=== PATIENT | female | born 2005 | race Caucasian/White ===

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

== ENCOUNTER 2023-08-22 22:06 | Emergency (ER) | payer OTHER ==
[2023-08-22] MEDS ORDERED: Sodium Chloride 0.9% 10 ML Syringe FLUSH PRN (22:43)
[2023-08-22] MEDS ORDERED: Ketorolac 30 MG/ML SDV IVPUSH ONE (22:44)
[2023-08-22] MEDS ORDERED: Metoclopramide 10 MG/2 ML SDV IVPUSH ONE (22:44)
[2023-08-22] MEDS ORDERED: diphenhydrAMINE 50 MG/ML SDV IVPUSH ONE (22:44)
[2023-08-22] MEDS ORDERED: Sodium Chloride 0.9% 1,000 ML IV ONE (22:44)
[2023-08-22 23:57] VITALS: BP 111/69; PULSE 86
== END 2023-08-22 23:48 | disposition home or self-care (01) ==
LOC: JD.ED 22:06
DX: G43.909 Migraine, unspecified, not intractable, without status migrainosus (principal)
CPT/HCPCS: 96361; 96374; 96375; 99283; J1200; J1885; J2765; J7030; 99284

== ENCOUNTER 2023-09-22 21:18 | Emergency (ER) | payer OTHER ==
[2023-09-22 22:06] LABS: BASOPHILS ABSOLUTE AUTO 0.1 K/mm3 (0.0-0.2); BASOPHILS PERCENT AUTO 0.4 % (0.0-1.0); EOSINOPHILS ABSOLUTE AUTO 0.2 K/mm3 (0.0-0.4); EOSINOPHILS PERCENT AUTO 1.3 % (0.0-6.0); HEMATOCRIT 37.3 % (37.0-47.0); HEMOGLOBIN 12.5 gm/dl (12.0-16.0); IMMATURE GRAN ABSOLUTE AUTO 0.04 K/mm3 (0.00-0.05); IMMATURE GRAN PERCENT AUTO 0.3 % (0.0-0.4); LYMPHOCYTES ABSOLUTE AUTO 3.7 K/mm3 (1.0-4.8); LYMPHOCYTES PERCENT AUTO 25.4 % (24.0-44.0); MEAN CORPUSCULAR HEMOGLOBIN 27.2 pg (28.0-32.0); MEAN CORPUSCULAR HGB CONC 33.5 g/dl (32.0-36.0); MEAN CORPUSCULAR VOLUME 81.1 fl (83.0-99.0); MONOCYTES PERCENT AUTO 6.7 % (0.0-8.0); NEUTROPHILS ABSOLUTE AUTO 9.5 K/mm3 (1.8-7.7); NEUTROPHILS PERCENT AUTO 65.9 % (41.0-71.0); PLATELET COUNT,PLT 257 K/mm3 (150-400); WHITE BLOOD CELL COUNT,WBC 14.41 K/mm3 (3.9-11.3)
[2023-09-22 22:30] LABS: A/G RATIO 1.2 (1-2); ALBUMIN 3.8 g/dl (3.4-5.0); ANION GAP 14.2 (5-15); BILIRUBIN TOTAL 0.2 mg/dL (0.2-1.0); CALCIUM 9.3 mg/dL (8.5-10.1); EST CRCL DRUG DOSING (CG) 77.49 mL/min; POTASSIUM,K 3.2 mEq/L (3.5-5.1)
[2023-09-22] MEDS ORDERED: Potassium Chloride 20 MEQ Tab.ER PO ONE (22:34)
[2023-09-22 23:40] VITALS: BP 115/75; PULSE 98
== END 2023-09-22 23:40 | disposition home or self-care (01) ==
LOC: JD.ED 21:18
DX: R07.89 Other chest pain (principal); R00.0 Tachycardia, unspecified; E87.6 Hypokalemia; Z86.16 Personal history of COVID-19
CPT/HCPCS: 36415; 71046; 80053; 84484; 85025; 93005; 93246; 99285; A9270; 93010; 99282

== ENCOUNTER 2024-04-02 15:51 | Emergency (ER) | payer OTHER ==
[2024-04-02] MEDS: Sodium Chloride 0.9% 1,000 ML IV ONE (18:55)
[2024-04-02] MEDS: Metoclopramide 10 MG/2 ML SDV IVPUSH ONE (18:55)
[2024-04-02] MEDS: Ketorolac 30 MG/ML SDV IVPUSH ONE (18:58)
[2024-04-02 19:42] VITALS: BP 132/78; PULSE 78
== END 2024-04-02 20:14 | disposition home or self-care (01) ==
LOC: JD.ED 15:51
DX: G43.909 Migraine, unspecified, not intractable, without status migrainosus (principal); Z79.899 Other long term (current) drug therapy; Z86.16 Personal history of COVID-19
CPT/HCPCS: 96374; 96375; 99283; J1885; J2765; J7030

== ENCOUNTER 2024-10-29 16:35 | Emergency (ER) | payer OTHER ==
[2024-10-29] MEDS: HYDROmorphone 0.5 MG/0.5 ML Syringe IVPUSH ONE (17:46)
[2024-10-29] MEDS: diphenhydrAMINE 50 MG/ML SDV IVPUSH ONE (17:46)
[2024-10-29] MEDS: Metoclopramide 10 MG/2 ML SDV IVPUSH ONE (17:46)
[2024-10-29] MEDS: Dextrose 5%-0.9% NaCl 1,000 ML IV SCH (17:47)
[2024-10-29 17:54] LABS: BASOPHILS ABSOLUTE AUTO 0.1 K/mm3 (0.0-0.2); BASOPHILS PERCENT AUTO 0.2 % (0.0-1.0); HEMATOCRIT 42.8 % (37.0-47.0); HEMOGLOBIN 14.5 gm/dl (12.0-16.0); IMMATURE GRAN ABSOLUTE AUTO 0.18 K/mm3 (0.00-0.05); IMMATURE GRAN PERCENT AUTO 0.7 % (0.0-0.4); LYMPHOCYTES ABSOLUTE AUTO 1.7 K/mm3 (1.0-4.8); LYMPHOCYTES PERCENT AUTO 6.8 % (24.0-44.0); MEAN CORPUSCULAR HEMOGLOBIN 29.7 pg (28.0-32.0); MEAN CORPUSCULAR HGB CONC 33.9 g/dl (32.0-36.0); MEAN CORPUSCULAR VOLUME 87.5 fl (83.0-99.0); MEAN PLATELET VOLUME 10.5 fl (9.4-12.3); MONOCYTES ABSOLUTE AUTO 0.5 K/mm3 (0.0-0.8); MONOCYTES PERCENT AUTO 2.2 % (0.0-8.0); NEUTROPHILS ABSOLUTE AUTO 22.5 K/mm3 (1.8-7.7); NEUTROPHILS PERCENT AUTO 90.1 % (41.0-71.0); PLATELET COUNT,PLT 286 K/mm3 (150-400); RED BLOOD CELL COUNT 4.89 M/mm3 (4.10-5.30); WHITE BLOOD CELL COUNT,WBC 24.96 K/mm3 (3.9-11.3)
[2024-10-29 18:11] LABS: SLIDE REVIEW ABNORMAL SMEAR
[2024-10-29 18:17] LABS: A/G RATIO 0.9 (1-2); ALBUMIN 3.6 g/dl (3.4-5.0); ANION GAP 18.6 (5-15); BILIRUBIN TOTAL 0.6 mg/dL (0.2-1.0); BUN/CREATININE RATIO 11.3 (14-18); CALCIUM 9.6 mg/dL (8.5-10.1); CREATININE 0.8 mg/dL (0.55-1.02); EST CRCL DRUG DOSING (CG) 96.06 mL/min; POTASSIUM,K 3.6 mEq/L (3.5-5.1); PROTEIN TOTAL,TP 7.8 g/dl (6.4-8.2)
[2024-10-29] MEDS: Acetaminophen 325 MG Tab PO ONE (18:20)
[2024-10-29] MEDS: Dexamethasone 4 MG/ML SDV IVPUSH ONE (18:21)
[2024-10-29] MEDS: Lactated Ringers 1,000 ML IV SCH (19:09)
[2024-10-29 19:15] LABS: APPEARANCE,URINE CLEAR (Clear); BILIRUBIN,URINE NEGATIVE (Negative); COLOR,URINE YELLOW (Yellow); GLUCOSE,URINE 2+ (Negative); KETONES,URINE 3+ (Negative); LEUKOCYTE ESTERASE,URINE NEGATIVE (Negative); NITRITE,URINE NEGATIVE (Negative); OCCULT BLOOD,URINE NEGATIVE (Negative); PROTEIN,URINE TRACE (Negative)
[2024-10-29 19:31] LABS: RBC,URINE 0-5 /hpf (0-5); WBC,URINE 0-5 /hpf (0-5)
[2024-10-29 19:32] LABS: BACTERIA,URINE FEW /hpf (FEW); MUCUS,URINE MODERATE /hpf (FEW)
[2024-10-29 19:47] VITALS: BP 122/85; PULSE 85
== END 2024-10-29 19:49 | disposition home or self-care (01) ==
LOC: JD.ED 16:35
DX: O99.352 Diseases of the nervous system complicating pregnancy, second trimester (principal); G43.919 Migraine, unspecified, intractable, without status migrainosus; Z86.16 Personal history of COVID-19; Z79.899 Other long term (current) drug therapy; Z3A.19 19 weeks gestation of pregnancy
CPT/HCPCS: 36415; 80053; 81001; 85025; 86140; 96361; 96374; 96375; 99283; A9270; J1100; J1171; J1200; J2765; J7042; J7120

== ENCOUNTER 2024-11-18 01:46 | Emergency (ER) | payer OTHER ==
[2024-11-18 02:02] VITALS: BP 118/68; PULSE 94
[2024-11-18] MEDS: Sodium Chloride 0.9% 10 ML Syringe FLUSH PRN (02:46)
[2024-11-18 02:47] LABS: APPEARANCE,URINE CLEAR (Clear); BILIRUBIN,URINE NEGATIVE (Negative); COLOR,URINE YELLOW (Yellow); GLUCOSE,URINE NEGATIVE (Negative); KETONES,URINE 4+ (Negative); LEUKOCYTE ESTERASE,URINE NEGATIVE (Negative); NITRITE,URINE NEGATIVE (Negative); OCCULT BLOOD,URINE NEGATIVE (Negative); PH,URINE 8.5 (5.0-8.0); PROTEIN,URINE 1+ (Negative)
[2024-11-18 02:50] LABS: BASOPHILS ABSOLUTE AUTO 0.1 K/mm3 (0.0-0.2); BASOPHILS PERCENT AUTO 0.2 % (0.0-1.0); HEMOGLOBIN 13.1 gm/dl (12.0-16.0); IMMATURE GRAN ABSOLUTE AUTO 0.19 K/mm3 (0.00-0.05); IMMATURE GRAN PERCENT AUTO 0.8 % (0.0-0.4); LYMPHOCYTES ABSOLUTE AUTO 1.7 K/mm3 (1.0-4.8); LYMPHOCYTES PERCENT AUTO 6.8 % (24.0-44.0); MEAN CORPUSCULAR HEMOGLOBIN 29.6 pg (28.0-32.0); MEAN CORPUSCULAR HGB CONC 35.4 g/dl (32.0-36.0); MEAN CORPUSCULAR VOLUME 83.7 fl (83.0-99.0); MEAN PLATELET VOLUME 10.2 fl (9.4-12.3); MONOCYTES ABSOLUTE AUTO 0.5 K/mm3 (0.0-0.8); NEUTROPHILS ABSOLUTE AUTO 22.5 K/mm3 (1.8-7.7); NEUTROPHILS PERCENT AUTO 90.2 % (41.0-71.0); PLATELET COUNT,PLT 267 K/mm3 (150-400); RED BLOOD CELL COUNT 4.42 M/mm3 (4.10-5.30); WHITE BLOOD CELL COUNT,WBC 24.95 K/mm3 (3.9-11.3)
[2024-11-18] MEDS: Sodium Chloride 0.9% 1,000 ML IV ONE (02:51)
[2024-11-18] MEDS: Acetaminophen 325 MG Tab PO ONE (02:52)
[2024-11-18] MEDS: diphenhydrAMINE 50 MG/ML SDV IVPUSH ONE (02:52)
[2024-11-18 03:12] LABS: A/G RATIO 0.8 (1-2); ALANINE AMINOTRANSFERASE,ALT 63 U/L (14-59); ALKALINE PHOSPHATASE 67 U/L (46-116); ANION GAP 18.5 (5-15); ASPARTATE AMNIOTRANSFERASE,AST 56 U/L (15-37); BILIRUBIN TOTAL 0.5 mg/dL (0.2-1.0); BLOOD UREA NITROGEN,BUN 8 mg/dL (7-18); BUN/CREATININE RATIO 11.4 (14-18); CALCIUM 9.1 mg/dL (8.5-10.1); CARBON DIOXIDE,CO2 20 mEq/L (21-32); CHLORIDE,CL 105 mEq/L (98-107); CREATININE 0.7 mg/dL (0.55-1.02); EST CRCL DRUG DOSING (CG) 109.78 mL/min; ESTIMATED GFR 126 mL/min (>60); GLUCOSE RANDOM 92 mg/dL (70-99); LIPASE 30 U/L (16-77); MAGNESIUM 1.4 mg/dL (1.8-2.4); POTASSIUM,K 3.5 mEq/L (3.5-5.1); PROTEIN TOTAL,TP 6.7 g/dl (6.4-8.2); SODIUM,NA 140 mEq/L (136-145)
[2024-11-18 03:14] LABS: TROPONIN I HIGH SENSITIVITY < 4 pg/mL (<=51)
[2024-11-18 03:27] LABS: BACTERIA,URINE FEW /hpf (FEW); MUCUS,URINE NOT SEEN /hpf (FEW); RBC,URINE 0-5 /hpf (0-5); SQUAMOUS EPITHELIAL CELLS,UR 0-5 /hpf (0-5); WBC,URINE 0-5 /hpf (0-5)
[2024-11-18] MEDS: Magnesium Oxide 400 MG Tab PO ONE (04:58)
== END 2024-11-18 04:48 | disposition home or self-care (01) ==
LOC: JD.ED 01:46
DX: O20.9 Hemorrhage in early pregnancy, unspecified (principal); O26.892 Other specified pregnancy related conditions, second trimester; R10.9 Unspecified abdominal pain; R51.9 Headache, unspecified; R07.9 Chest pain, unspecified; D72.829 Elevated white blood cell count, unspecified; E83.42 Hypomagnesemia; Z86.16 Personal history of COVID-19; Z87.891 Personal history of nicotine dependence; Z79.899 Other long term (current) drug therapy; Z3A.22 22 weeks gestation of pregnancy
CPT/HCPCS: 36415; 76817; 80053; 81001; 83690; 83735; 84484; 84702; 85025; 86900; 86901; 93005; 96361; 96374; 99285; A9270; J1200; J7030

== ENCOUNTER 2025-03-21 06:46 | Inpatient (IN) | payer OTHER ==
[~2025-03-21 06:46] MED LIST: Bupivacaine 0.25% 10 ML SDV ONE; Lidocaine 2% with EPINEPHrine 1:200,000 20 ML SDV ONE; Phenylephrine 1% 10 MG/ML SDV ONE
[2025-03-21] MEDS ORDERED: Sodium Chloride 0.9% 10 ML Syringe FLUSH PRN (06:48)
[2025-03-21] MEDS ORDERED: Nalbuphine 10 MG/1 ML Vial IVPUSH PRN (06:48)
[2025-03-21] MEDS ORDERED: Lidocaine 1% 50 ML MDV INJECT PRN (06:48)
[2025-03-21] MEDS ORDERED: Oxytocin/0.9 % Sodium Chloride 30 UNIT/500 ML BAG IV SCH (07:00)
[2025-03-21 07:08] LABS: BASOPHILS ABSOLUTE AUTO 0.1 K/mm3 (0.0-0.2); BASOPHILS PERCENT AUTO 0.3 % (0.0-1.0); EOSINOPHILS ABSOLUTE AUTO 0.1 K/mm3 (0.0-0.4); EOSINOPHILS PERCENT AUTO 0.6 % (0.0-6.0); HEMATOCRIT 37.5 % (37.0-47.0); HEMOGLOBIN 12.4 gm/dl (12.0-16.0); IMMATURE GRAN ABSOLUTE AUTO 0.11 K/mm3 (0.00-0.05); IMMATURE GRAN PERCENT AUTO 0.6 % (0.0-0.4); LYMPHOCYTES ABSOLUTE AUTO 2.7 K/mm3 (1.0-4.8); LYMPHOCYTES PERCENT AUTO 15.7 % (24.0-44.0); MEAN CORPUSCULAR HEMOGLOBIN 28.3 pg (28.0-32.0); MEAN CORPUSCULAR HGB CONC 33.1 g/dl (32.0-36.0); MEAN CORPUSCULAR VOLUME 85.6 fl (83.0-99.0); MEAN PLATELET VOLUME 11.7 fl (9.4-12.3); MONOCYTES ABSOLUTE AUTO 0.6 K/mm3 (0.0-0.8); MONOCYTES PERCENT AUTO 3.7 % (0.0-8.0); NEUTROPHILS ABSOLUTE AUTO 13.5 K/mm3 (1.8-7.7); NEUTROPHILS PERCENT AUTO 79.1 % (41.0-71.0); PLATELET COUNT,PLT 233 K/mm3 (150-400); RED BLOOD CELL COUNT 4.38 M/mm3 (4.10-5.30); WHITE BLOOD CELL COUNT,WBC 17.04 K/mm3 (3.9-11.3)
[2025-03-21] MEDS: Lactated Ringers 1,000 ML IV SCH (07:50)
[2025-03-21] MEDS: Oxytocin/0.9 % Sodium Chloride 30 UNIT/500 ML BAG IV SCH (07:51)
[2025-03-21] MEDS ORDERED: Sodium Chloride 0.9% 10 ML Syringe FLUSH SCH (09:00)
[2025-03-21] MEDS ORDERED: ePHEDrine 50 MG/ML SDV IVPUSH PRN (09:42)
[2025-03-21] MEDS ORDERED: diphenhydrAMINE 50 MG/ML SDV IVPUSH PRN (09:42)
[2025-03-21] MEDS: Bupivacaine/fentaNYL/NS 100 ML Bag EPIDUR PRN (09:52)
[2025-03-21] MEDS: Propranolol 10 MG Tab PO SCH (11:46)
[2025-03-21] MEDS: Acetaminophen 325 MG Tab PO PRN (15:20)
[2025-03-21] MEDS ORDERED: fentaNYL 100 MCG/2 ML SDV ONE (16:56)
[2025-03-21] MEDS: Ondansetron 4 MG/2 ML SDV IVPUSH PRN (17:20)
[2025-03-21] MEDS ORDERED: Docusate Sodium 100 MG Cap PO PRN (18:50)
[2025-03-21] MEDS: Witch Hazel Medicated Pads 40/Jar TOP PRN (21:15)
[2025-03-21] MEDS: Benzocaine/Menthol 20%-0.5% Spray 78 GM Cannister TOP PRN (21:16)
[2025-03-21] MEDS: Propranolol 20 MG Tab PO SCH (22:52)
[2025-03-22] MEDS: Ibuprofen 800 MG Tab PO SCH ×2 (02:10→03:00)
[2025-03-22 21:08] VITALS: BP 103/81; PULSE 64
[2025-03-22] MEDS ORDERED: Ibuprofen 800 MG Tab PO SCH (22:00)
== END 2025-03-22 20:15 | disposition home or self-care (01) | DRG 807 ==
LOC: JD.OB 06:46 → OBSVTOIN 18:49 → JD.OB 18:49
PROVIDERS: ADMIT Obstetrics & Gynecology; ATTEND Obstetrics & Gynecology
PROC: 10907ZC Drainage of Amniotic Fluid, Therapeutic from Products of Conception, Via Natural or Artificial Opening (ICD-10-PCS; principal; 2025-03-21)
PROC: 3E0R3BZ Introduction of Anesthetic Agent into Spinal Canal, Percutaneous Approach (ICD-10-PCS; principal; 2025-03-21)
PROC: 10E0XZZ Delivery of Products of Conception, External Approach (ICD-10-PCS; principal; 2025-03-21)
PROC: 3E033VJ Introduction of Other Hormone into Peripheral Vein, Percutaneous Approach (ICD-10-PCS; principal; 2025-03-21)
PROC: 0HQ9XZZ Repair Perineum Skin, External Approach (ICD-10-PCS; principal; 2025-03-21)
DX: O99.344 Other mental disorders complicating childbirth (principal); Z37.0 Single live birth; O70.0 First degree perineal laceration during delivery; Z3A.39 39 weeks gestation of pregnancy; Z86.16 Personal history of COVID-19; Z98.890 Other specified postprocedural states; Z79.899 Other long term (current) drug therapy
CPT/HCPCS: 36415; 51702; 59025; 59409; 85025; 86592; 86850; 86900; 86901; A9270-GY; J0665; J2371; J2405; J3490; J7120; J7999